=== PATIENT | male | born 1955 | race Caucasian/White ===

== ENCOUNTER → 2023-05-05 13:56 | Outpatient (CLI) | payer MEDICARE, OTHER, SELFPAY ==
--- NOTE | 2023-05-05 14:03 | DI.RAD.S_ITS ---
PROCEDURE: XR KNEE RT 3V INDICATIONS: RIGHT KNEE PAIN TECHNIQUE: Three views of the knee were acquired. COMPARISON: None. FINDINGS: Bones: Normal mineralization. No fractures. Moderate medial compartment joint space loss and marginal spur formation. Soft tissues: No joint effusion. No suspicious soft tissue calcifications. IMPRESSION: 1. No visible fractures. If there is continued concern for occult fracture, immobilization and reimaging in 7-10 days is recommended. 2. No joint effusion to indicate internal derangement. 3. Moderate medial compartment osteoarthritic changes. Dictated by: Carola Herring M.D. on 05/05/2023 at 17:56 Approved by: Carola Herring M.D. on 05/05/2023 at 17:59
--- NOTE | 2023-05-05 14:03 | DI.RAD.S_ITS ---
PROCEDURE: XR KNEE LT 3V INDICATIONS: LEFT KNEE PAIN TECHNIQUE: 3 views of the knee were acquired. COMPARISON: None. FINDINGS: Bones: No fractures or dislocations. No suspicious bony lesions. Tricompartmental joint space narrowing with associated osteophytosis. Subchondral sclerosis of the medial tibiofemoral compartment. Soft tissues: No joint effusion. No suspicious soft tissue calcifications. IMPRESSION: Moderate tricompartmental osteoarthritis. Kellgren-Freddy Grade 2-3. Dictated by: Rancho Jose M.D. on 05/05/2023 at 14:49 Approved by: Rancho Jose M.D. on 05/05/2023 at 14:54
== END ==
PROVIDERS: PCP Family Medicine; Referring Provider Physical Medicine & Rehabilitation; Visit Provider Physical Medicine & Rehabilitation
DX: M25.562 Pain in left knee (principal); M25.561 Pain in right knee; M17.0 Bilateral primary osteoarthritis of knee
CPT/HCPCS: 20611; 73562; 99214; J7318

== ENCOUNTER → 2023-09-09 15:14 | Outpatient (CLI) | payer MEDICARE, OTHER, SELFPAY ==
--- NOTE | 2023-09-09 15:15 | DI.RAD.S_ITS ---
PROCEDURE: XR HIP W PEL IF DONE RT 2V INDICATIONS: RIGHT HIP PAIN TECHNIQUE: AP pelvis with lateral view(s) of the right hip(s). COMPARISON: None. FINDINGS: Bones: No fractures or dislocations. Pelvic ring appears intact. No suspicious bony lesions. Soft tissues: The visualized bowel gas pattern is normal. No suspicious soft tissue calcifications. IMPRESSION: No acute radiographic findings. If pain persists, followup imaging in 5-7 days is recommended to exclude occult fracture. Dictated by: Monika Rivera M.D. on 09/09/2023 at 16:31 Approved by: Monika Rivera M.D. on 09/09/2023 at 16:31
--- NOTE | 2023-09-09 15:15 | DI.RAD.S_ITS ---
PROCEDURE: XR LUMBAR SPINE MIN 4V INDICATIONS: BACK PAIN TECHNIQUE: 5 views of the lumbar spine were acquired, including bilateral oblique views. COMPARISON: None. FINDINGS: Bones: There are 5 [id number] lumbar vertebral bodies. S shaped scoliosis is present within the visualized portions of the thoracolumbar spine. The entire extent of the scoliotic deformity is incompletely characterized without the use of the thoracic spine. No compression deformities. Mild degenerative changes are present including endplate sclerosis and facet sclerosis. Soft tissues: Overlying bowel gas pattern is normal. No suspicious soft tissue calcifications. Oblique images: No pars defects. IMPRESSION: 1. Thoracolumbar scoliosis. 2. No spondylolysis or spondylolisthesis. 3. Mild degenerative change. Dictated by: Monika Rivera M.D. on 09/09/2023 at 16:30 Approved by: Monika Rivera M.D. on 09/09/2023 at 16:31
== END ==
PROVIDERS: PCP Family Medicine; Referring Provider Physical Medicine & Rehabilitation; Visit Provider Physical Medicine & Rehabilitation
DX: M47.814 Spondylosis without myelopathy or radiculopathy, thoracic region (principal); M41.9 Scoliosis, unspecified; M25.551 Pain in right hip; M54.9 Dorsalgia, unspecified; M17.0 Bilateral primary osteoarthritis of knee; C61 Malignant neoplasm of prostate; M70.61 Trochanteric bursitis, right hip; M41.20 Other idiopathic scoliosis, site unspecified
CPT/HCPCS: 72110; 73502; 99214

== ENCOUNTER → 2024-10-11 13:43 | Outpatient (CLI) | payer MEDICARE, OTHER, SELFPAY ==
--- NOTE | 2024-10-11 14:00 | EKG_ITS ---
[id number] [place] [address] Test Date: 2024-10-11 Pat Name: Khris Mitchell Department: [facility] Room: Gender: Male Rn Pediatric: SAVANNAH : 1955 Requested By: Order Number: [id number] Reading MD: Kael Montgomery Measurements Intervals [place] Rate: 65 P: 34 [place]: 192 QRS: -15 QRSD: 104 T: 10 QT: 422 QTc: 438 Interpretive Statements Normal sinus rhythm Incomplete right bundle branch block Electronically Signed On 10-11-2024 14:51:11 PST by Kael Montgomery
[2024-10-11 14:13] LABS: Add Manual Diff / Slide Review NO; Basophils Absolute Auto 0 /uL (0-100); Eosinophils Absolute Auto 100 /uL (0-450); Eosinophils Percent Auto 2.4 % (2-4); Hemoglobin 13.2 g/dL (13.5-17.5); Lymphocytes Absolute Auto 1100 /uL (1100-4500); Lymphocytes Percent Auto 21.9 % (25-40); Mean Corpuscular Hemoglobin 31.2 PG (26-34); Mean Corpuscular Volume 91.7 fL (80-100); Monocytes Absolute Auto 600 /uL (0-900); Monocytes Percent Auto 11.7 % (3-14); Neutrophils Absolute Auto 3100 /uL (1500-7000); Platelet Count 254 X10^3/uL (150-400); Red Blood Cell Count 4.25 X10^6/uL (4.5-5.9); White Blood Cell Count 4.8 X10^3/uL (4.5-11.0)
[2024-10-11 14:28] LABS: Hemoglobin A1C% w Est Avg Glu 5.4 % (4.0-6.0)
[2024-10-11 14:33] LABS: Alanine Aminotransferase 34 IU/L (<50); Albumin 4.3 g/dL (3.5-5.0); Albumin Globulin Ratio 1.6 (1.0-2.8); Alkaline Phosphatase 83 U/L (38-126); Aspartate Aminotransferase 42 IU/L (17-59); BUN Creatinine Ratio 35.7 (6-22); Bilirubin Total 0.8 mg/dL (0.2-1.3); Blood Urea Nitrogen 30 mg/dL (9-20); Calcium 9.6 mg/dL (8.4-10.2); Carbon Dioxide 25 mmol/L (22-32); Chloride 103 mmol/L (98-107); Estimated Glomerular Filt Rate > 60 mL/min (>60); Globulin 2.7 g/dL (1.7-4.1); Glucose 97 mg/dL (80-110); HEMOLYSIS < 15 (0-50); Potassium 4.4 mmol/L (3.4-5.1); Sodium 135 mmol/L (137-145)
[2024-10-11 14:52] LABS: Appearance Urine UA CLEAR; Bilirubin Urine UA 1+ (NEGATIVE); Color Urine UA YELLOW; Glucose Urine UA NEGATIVE (Negative); Ketones Urine UA 1+ (NEGATIVE); Leukocyte Esterase Urine UA NEGATIVE (NEGATIVE); Nitrite Urine UA NEGATIVE (Negative); Occult Blood Urine UA NEGATIVE (Negative); Protein Urine UA TRACE (Negative); Specific Gravity Urine UA 1.025 (1.000-1.035)
[2024-10-11 14:57] LABS: Ictotest Urine Negative (Negative)
[2024-10-11 15:08] LABS: Bacteria Urine None Seen; RBC Urine None Seen (0-5/HPF); Squamous Epithelial Cell Urine 0-1 /HPF (0-5/HPF); Urine Volume 10mL (spun); WBC Urine 0-1/HPF (0-5/HPF)
[2024-10-11 15:09] LABS: Hyaline Casts Urine 1-5/LPF; Mucus Urine 2+ (Negative)
[2024-10-11 15:10] LABS: Culture Indicated Urine Cult Not Indicated
== END ==
LOC: LAB 13:44
PROVIDERS: PCP Family Medicine; Referring Provider Orthopaedic Surgery; Visit Provider Orthopaedic Surgery
DX: Z01.818 Encounter for other preprocedural examination (principal); R73.9 Hyperglycemia, unspecified; Z01.812 Encounter for preprocedural laboratory examination; N39.0 Urinary tract infection, site not specified
CPT/HCPCS: 36415; 80053; 81001; 83036; 85025; 93005

== ENCOUNTER → 2024-10-15 09:49 | Outpatient (CLI) | payer MEDICARE, OTHER, SELFPAY ==
--- NOTE | 2024-10-15 09:50 | DI.NM.S_ITS ---
PROCEDURE: NM BONE SCAN WHOLE BODY RADIOPHARMACEUTICAL: 22 mCi Tc-99m MDP IV. INDICATIONS: primary osteoarthritis of left knee TECHNIQUE: Delayed whole-body scintigrams were obtained approximately 3-4 hours after intravenous injection of radiotracer. Anterior and posterior views were acquired from vertex to feet. Additional left and right oblique views of the knees were obtained. COMPARISON: None. FINDINGS: Increased uptake within the left greater than right knees, most pronounced within the medial compartments. Additional areas of degenerative uptake including the shoulders, spine and feet. Scoliotic curvature of the thoracic spine. Prominent uptake within the right mid cervical spine, likely representing facet arthropathy or hypertrophy. IMPRESSION: Increased uptake within left greater than right knees, most pronounced within the medial compartment. Dictated by: Wei Deng M.D. on 10/15/2024 at 15:51 Approved by: Wei Deng M.D. on 10/15/2024 at 15:53
== END ==
PROVIDERS: PCP Family Medicine; Referring Provider Orthopaedic Surgery; Visit Provider Orthopaedic Surgery
DX: M17.12 Unilateral primary osteoarthritis, left knee (principal); Z85.46 Personal history of malignant neoplasm of prostate
CPT/HCPCS: 78306; A9503

== ENCOUNTER 2024-11-13 11:28 | Day surgery (SDC) | payer MEDICARE, OTHER, SELFPAY ==
[2024-11-07 09:38] VITALS: BMI 28.2
[2024-11-13] VITALS (10 sets, daily range): BP systolic 134–164; BP diastolic 76–98; PULSE 51–71; RESP 15–20; TEMP 35.8–37.1; O2SAT 94–100; BMI 29.2
--- NOTE | 2024-11-13 | PATH_ITS ---
[facility] Accession Number: [id number] No. of containers..01 Tissue . 01 Material submitted: . tibia - TIBIA (LEFT) PERMANENT L KNEE . 01 Diagnosis: TIBIA (LEFT) PERMANENT L KNEE, BIOPSY: Trabecular bone with evidence of remodeling, osteonecrosis, and interspersed marrow fibrosis, changes consistent with degeneration. Negative for osteomyelitis or malignancy. MRV 11/15/2024 1602 Local . 01 Comment: As part of ongoing billing and quality technician, this case is also reviewed by Dr. Natalie Duran, who agrees with the interpretation. . 01 Electronically signed: . Ildefonso Jeronimo MD, Pathologist NPI- [id number] . 01 Gross description: . Received in formalin with two patient identifiers and tibia left knee, and consists of a 1.1 x 1.0 x 0.7 cm aggregate of medina-brown spongy bone which is entirely submitted in cassette A1 following light decalcification. ([id number]) /MRV 11/14/20241950 Local . 01 Pathologist provided ICD-10: M17.12 . 01 CPT . 122592, [id number] Specimen Comment: A courtesy copy of this report has been sent to [phone] Performed at: [address] [address], [place], [place] [id number] MD Balta Santana MD Phone: [phone]
--- NOTE | 2024-11-13 06:00 | DI.RAD.S_ITS ---
PROCEDURE: XR KNEE LT 1TO2V INDICATIONS: TKA TECHNIQUE: 2 view(s) of the knee acquired. COMPARISON: [facility], CR, XR KNEE RT 3V, 05/05/2023, 14:15. FINDINGS: Bones: Patient is status post knee joint arthroplasty. Hardware components are in expected positions. Visualized bony structures are intact. Soft tissues: Overlying postoperative changes are noted. IMPRESSION: Expected post-operative appearance of a knee arthroplasty. Dictated by: Jessica Matute M.D. on 11/15/2024 at 10:50 Approved by: Jessica Matute M.D. on 11/15/2024 at 10:51
[2024-11-13] MEDS: LACTATED RINGERS 1,000 ML 42 ML IV (12:09)
[2024-11-13] MEDS: ACETAMINOPHEN 325 MG TABLET 975 MG PO (12:11)
[2024-11-13] MEDS: CELECOXIB 200 MG CAPSULE 400 MG PO (12:11)
[2024-11-13] MEDS: VANCOMYCIN 1,000 MG in SODIUM CHLORIDE 0.9% 250 ML 250 MG IV (12:35)
--- NOTE | 2024-11-13 14:42 | P.OP_ITS ---
Operative Date/Time/Diagnoses Date of procedure: 11/13/24 Time of procedure: 15:00 Pre-op diagnosis: left knee OA Post-op diagnosis: same Procedure & Clinicians Procedure: 1. Left total knee arthroplasty 2. Proximal medial tibia bone biopsy intramedullary Same procedure as scheduled: Yes Indications: The patient has had progressively worsening left knee pain with radiographic changes consistent with arthritis. Non-operative management has failed and the patient has requested total knee replacement. The risks, benefits and alternatives to surgery were discussed with the patient prior to proceeding. Risks discussed included, but were not limited to, failure to relieve pain, stiffness, infection, nerve damage, deep venous thrombosis, pulmonary embolism, stroke, coma, heart attack, permanent paralysis and , as well as the potential need for eventual revision of the prosthetic. He has a history of metastatic prostate cancer and did require additional workup preoperatively because of an atypical signal in his proximal medial tibia. The plan was for potential biopsy of his proximal medial tibia. Surgeon: Pati Conley Laborer Wrecking And Salvaging: Es Merino Anesthesia Type: General and Spinal Operative Notes Findings: Severe left knee OA, adequate stability Closure Type: primary Specimen(s): none sent Prosthetic devices, grafts, tissues, transplants, or devices: Conley and nephew ori BCS2 SIZE 7 FEMUR, SIZE 6TIBIA, +9 poly, 38 mm patella Estimated Blood Loss (mL): 250 Blood products transfused: none Tourniquet time (min): 90 Procedure in detail: The patient was seen in the pre-operative area, where the patient identified the left knee as the operative site and this was marked with my initials. The patient received pre-operative antibiotics, and was taken to the operating room and placed on the operative table in the supine position. After satisfactory anesthesia, a annealing furnace operator out was performed. The left leg was encircled with a tourniquet about the proximal thigh, and the leg was prepared from the toes to the tourniquet with ChloroPrep in the usual fashion and draped through sterile drapes. The leg was elevated and exsanguinated with Eschmark bandage and the tourniquet inflated to [250] mmHg pressure. A PA was used during the procedure and was essential for intraoperative retraction and safe implantation of the components. The knee was approached through an approximately 18 cm incision centered over the patella and carried into the knee through a medial parapatellar arthrotomy. Portion of the medial and lateral meniscus was resected. Soft tissue was carefully mobilized around the patella the patella was measured with a caliper. Bone was resected from the patella and the patellar height was reconstituted with up an appropriate sized patellar component. A cover was then placed on the patella. A small amount of additional medial and lateral meniscus was resected. Cristhian pins were placed in the femur for robotic assisted navigation, and the adjustable tibial navigated guide was placed. A plan was taken and developed optimize range of motion and stability. It looked like an appropriate distal femoral cut and the cut was made without difficulty. The rotation was assessed and the appropriate size femoral guide was placed on the distal femur and finishing cuts were made. There was no evidence of notching. The anterior, posterior and chamfer cuts were then made. The posterior osteophytes and soft tissues were then removed. The posterior capsule was injected with part of a mixture of 60 ml 0.25% Marcaine mixed with 266 mg Exparel for post operative pain control. The remainder of this mixture was injected into the capsule and subcutaneous tissues during cement curing. The tibial guide was meticulously navigated for a proximal tibial cut. The cut was made without difficulty. The rotation was assessed. The patient was placed in extension residual medial and lateral meniscus as well as any residual bone was carefully resected. [No] additional tibia was resected. Hemostasis was achieved especially posteriorly. Additional local was injected into the posterior capsule. The extension gap was assessed. The femoral component trial was placed and the notch was finished. Trial tibial and femoral components were then placed and the knee placed through a range of motion. Range of motion was [0-130], with good stability throughout the range. The trials were then removed, and the tibia was finished. There was good bone in the proximal tibial plateau and it did not look like I needed to augment with the stem. Patient did have evidence of bony changes in the proximal medial tibia which was noted preoperatively requiring additional workup as he has a known history of prostate cancer. It was felt that a biopsy was indicated and a intramedullary deep tibial biopsy was obtained by reaching down into the proximal medial tibia beyond the tip of the distal stem and into the proximal medial tibia and removing bone to send for pathology. The bone that was obtained did not appear atypical. The bone was prepared with pulsatile lavage, and dried with a sponge. Cement was applied and the final prosthetics placed. Excess cement was removed during and after cement curing. A brief Betadine soak was performed. After confirming there was no extruded cement posteriorly, the final tibial insert was placed. The knee was copiously irrigated and the tourniquet deflated. Hemostasis was obtained with the Bovie cautery. The capsule was closed with interrupted # 1 Vicryl suture. The subcutaneous layer was closed with barbed sutures, and the skin with a running 3-0 V-Lock suture and Surgical glue. An Aquacel Ag dressing was applied and the patient was taken to recovery having tolerated the procedure well. Complications: none Post-operative Disposition: Acute Care Plan for aftercare: The patient will be maintained on a standard total knee replacement protocol with weight bearing as tolerated. The patient will receive aspirin and sequential compression devices for DVT prophylaxis. The patient will be discharged home when safe for the home environment.
--- NOTE | 2024-11-13 14:42 | PM.PREOP ---
Pre-operative Note Interval Note History & Physical reviewed/Exam performed by Physician: Yes Changes to H&P: No
[2024-11-13] MEDS: BUPIVACAINE LIPOSOME 266 MG/20 ML VIAL INJ (15:45)
[2024-11-13] MEDS: BUPIVACAINE 0.25% W/ EPI 30 ML VIAL INJ ×2 (15:46→15:47)
[2024-11-13] MEDS: CEFAZOLIN 2 GM/100 ML PREMIX 100 ML IV (15:47)
[2024-11-13] MEDS: KETOROLAC 30 MG/ML VIAL 15 MG IV (17:48)
[2024-11-13] MEDS: hydrOXYzine 50 MG/ML INJ 25 MG IM (17:48)
--- NOTE | 2024-11-13 18:06 | PC.NURSE ---
Patient is A&OX4, VSS, afebrile. SBP slightly elevated. Patient states he has not taken his home BP meds for a couple of days. He reports pain 8/10 to L knee, but hesitating to take po narcotics. He was given toradol and hydroxyzine in PACU prior to arrival. He tolerates dinner well and denies n/v. +CMS to BLE's. Ziggy wrap to L knee c/d/i/. He states last void was at approximately noon today. Due to void at 1999. IVF LR at 100 ml/hr, SCD's on, admission assessment completed, along with med rec, continuous pulse ox monitoring, bed alarm on, call light and urinal in reach, frequent rounding.
--- NOTE | 2024-11-13 18:18 | SUR.PHASEI ---
Verified verbal orders placed by Rayshawn Garcia RN from Dr Conley.
[2024-11-13] MEDS: LACTATED RINGERS 1,000 ML 100 ML IV (18:31)
[2024-11-13] MEDS: ACETAMINOPHEN 325 MG TABLET 650 MG PO (18:37)
[2024-11-13] MEDS: ASPIRIN EC 81 MG TABLET PO (21:17)
[2024-11-13] MEDS: DOCUSATE 100 MG CAPSULE PO (21:17)
[2024-11-14] MEDS: CEFAZOLIN 2 GM/100 ML PREMIX 100 ML IV ×2 (01:00→07:38)
[2024-11-14] MEDS: LACTATED RINGERS 1,000 ML 100 ML IV (01:58)
[2024-11-14] MEDS: ACETAMINOPHEN 325 MG TABLET 650 MG PO ×2 (03:43→09:58)
[2024-11-14 06:33] LABS: Hematocrit 35.3 % (41-53)
[2024-11-14] MEDS: PANTOPRAZOLE DR 20 MG TABLET PO (06:48)
--- NOTE | 2024-11-14 07:28 | PM.DS.1 ---
History of Present Illness History of Present Illness Date Patient Seen: 11/14/24 Time Patient Seen: 07:15 Chief complaint: Left TKA- Robot *OPB* Narrative: The patient has had progressively worsening left knee pain with radiographic changes consistent with arthritis. Non-operative management has failed and the patient has requested total knee replacement. The risks, benefits and alternatives to surgery were discussed with the patient prior to proceeding. Risks discussed included, but were not limited to, failure to relieve pain, stiffness, infection, nerve damage, deep venous thrombosis, pulmonary embolism, stroke, coma, heart attack, permanent paralysis and , as well as the potential need for eventual revision of the prosthetic. He has a history of metastatic prostate cancer and did require additional workup preoperatively because of an atypical signal in his proximal medial tibia. The plan was for potential biopsy of his proximal medial tibia. Discharge Providers Provider Discharge Date: 11/14/24 Primary care physician: Cortes Diez MD Consults: 11/13/24 06:00 Consult to Anesthesiology Routine Comment: Consulting Provider: Anesthesiologist Reason for consultation: Regional block for post operative pain control 11/13/24 17:47 Consult to Discharge Planning Routine Comment: Consult to Occupational Therapy Evaluate & Treat Comment: Physician Instructions: Evaluate and treat Consult to Physical Therapy Evaluate & Treat Comment: Physician Instructions: postop TKA protocol Discharge provider: Derw Bolden PA-C Summary Hospital Course Discharge Diagnosis: left knee OA Hospital Course: Procedure: 1. Left total knee arthroplasty 2. Proximal medial tibia bone biopsy intramedullary Same procedure as scheduled: Yes Surgeon: Pati Conley Glass Blowing Instructor: Es Merino Anesthesia Type: General and Spinal Operative Notes Findings: Severe left knee OA, adequate stability Closure Type: primary Specimen(s): none sent Prosthetic devices, grafts, tissues, transplants, or devices: Conley and nephew journey BCS2 SIZE 7 FEMUR, SIZE 6TIBIA, +9 poly, 38 mm patella Estimated Blood Loss (mL): 250 Blood products transfused: none Tourniquet time (min): 90 Status at Discharge Cognitive/behavioral status at discharge: oriented Functional status at discharge: uses cane/walker Overall status at discharge: patient is back to baseline Time Spent with Patient Time spent: Less than 30 minutes Exam Vital Signs (past 8 hours): Oxygen Delivery Method Room Air Oxygen Flow Rate 0 Narrative Exam Narrative: Had complaints of decreased sensation along the pelvic region and urinated on himself. Condom catheter was applied. States that sensation has returned and is able to retained urine appropriately. Patient's pain is controlled with oral medication. ?Pain is localized to surgical site. ?Patient declines any new numbness or tingling at the surgical extremity. ?Patient denies any shortness of breath, dizziness, light-headedness, nausea, vomiting, fever or chills. 5/5 strength in hip flexors, quadriceps, hamstrings, DF, PF, EHL bilaterally. Sensation to light touch intact throughout BLE. Calves soft, compressible, nontender. Dressing placed intraoperatively CDI. Objective Labs 11/14/24 05:00 Labs: Laboratory Results - last 24 hr 11/14/24 05:00 Hgb 12.0 L Hct 35.3 L PFSH Medical History Depression GERD (gastroesophageal reflux disease) HTN (hypertension) Hx of agent Dooly exposure Scoliosis Greater trochanteric bursitis of right hip Prostate CA Degenerative joint disease of knee Surgical History H/O left knee surgery Status post Mohs surgery History of ear surgery H/O prostatectomy Family History Father Emphysema of lung Mother Age factor Social History household members: spouse Smoking Status: Never smoker alcohol intake: current Discharge Assessment & Plan Assessment and Plan Assessment: Status post left total knee arthroplasty and proximal medial tibial bone biopsy. Plan of Treatment: Discharge to home. ? Ambulate and weight bear as tolerated with assistive devices. ? Aspirin 81 mg twice a day for 6 weeks for DVT prevention. ? Baseline pain relief with acetaminophen 500mg every 4 hours as needed and ibuprofen 400 mg every 4 hours as needed. ?Patient has been prescribed oxycodone 5 mg every 4 ?hours as needed for breakthrough pain. ? Initiate physical therapy in the next 5-10 days. ? Keep dressing clean and dry. Keep dressing on until first office visit. If dressing becomes dirty or disrupted, replace with appropriate sized dressing. Follow up in clinic in 2 weeks for wound check. Contact clinic if there are any questions or concerns. Discharge Plan Discharge Plan Patient Disposition: Home Discharge orders & Medications Discharge Orders: Discharge (Order); Ordered 11/14/24 Ordered By: Drew B Yuan Prescriptions: New aspirin 81 mg Tablet,Delayed Release (Dr/Ec) 81 mg PO BID Qty: 90 0RF Continued celecoxib [Celebrex] 200 mg capsule 200 mg PO DAILY Qty: 90 2RF Rx Instructions: DON'T TAKE ANY OTHER NSAIDS WITH THIS MEDICATION diclofenac sodium 1 % Gel 4 g TOPICAL QID Rx Instructions: apply to single knee, ankle, foot; for foot includes sole/toes/top of foot magnesium 250 mg Tablet 250 mg PO DAILY escitalopram oxalate 20 mg tablet 20 mg PO DAILY Patient Comments: TAKE 1 TABLET BY MOUTH DAILY Xtandi 80 mg tablet 160 mg PO DAILY omeprazole 20 mg capsule,delayed release(DR/EC) 20 mg PO DAILY losartan 50 mg tablet 50 mg PO DAILY multivitamin Tablet 1 tab PO DAILY leuprolide acetate (6 month) 45 mg syringe kit 45 mg IM [id number] Follow up/Referrals: Es Merino PA-C [Advanced Proof Press Operator] - 11/27/24 11:00 am (Appt:11/27 @ 11:00 with Blanco PAC @ [facility] ) Cortes Diez MD [Primary Care Provider] - Diet/Activity/Treatments Diet: Diet as Tolerated Activity: Ambulate multiple times a day. Use a cane or walker as needed. Full weight on leg. Skin/Wound/Dressing Care Skin care: Leave dressing on. Okay to shower Report to your healthcare provider any signs of infection, such as:: chills, fever, night sweats, unusual drainage and unusual redness Dressing: May shower. Leave dressing in place until follow up in office. No bathing or otherwise soaking incision. Call the office if the dressing becomes saturated inside. Visit Report/Discharge Packet Instructions: DI for Knee Replacement Stand Alone Forms: Patient Portal/API, Surgery Discharge Discharge Data Primary Care Provider: Cortes Diez Attending Provider: Pati Conley VTE Deep Vein Thrombosis/Pulmonary Embolism Present on Admission: No
[2024-11-14 08:05] VITALS: BP 158/65
[2024-11-14] MEDS: DOCUSATE 100 MG CAPSULE PO (08:05)
[2024-11-14] MEDS: MAGNESIUM OXIDE 400 MG TABLET 200 MG PO (08:05)
[2024-11-14] MEDS: ASPIRIN EC 81 MG TABLET PO (08:05)
[2024-11-14] MEDS: LOSARTAN 50 MG TABLET PO (08:05)
[2024-11-14] MEDS: MULTIVITAMIN 1 TABLET 1 TAB PO (08:06)
[2024-11-14] MEDS: ESCITALOPRAM 10 MG TABLET 20 MG PO (08:06)
[2024-11-14] MEDS: IBUPROFEN 400 MG TABLET PO (08:08)
--- NOTE | 2024-11-14 09:30 | OT.IP.EVAL ---
Current Diagnoses Unilateral primary osteoarthritis, left knee (11/13/24) Surgery Performed Operation Date: 11/13/24 13:45 Actual Procedures p Total Knee Arthroplasty - Robot(Left) - Pati Conley MD Past Medical History (Last Reviewed 11/13/24 @ 12:02 by Christine Angulo, RN) Degenerative joint disease of knee Depression GERD (gastroesophageal reflux disease) Greater trochanteric bursitis of right hip HTN (hypertension) Hx of agent [place] exposure Prostate CA Scoliosis Surgical History (Last Reviewed 11/13/24 @ 12:02 by Christine Angulo, RN) H/O left knee surgery H/O prostatectomy History of ear surgery Status post Mohs surgery Occupational Therapy Inpatient Evaluation/Re-Eval M1 PT/OT-IP Prior Functional Status Start: 11/14/24 09:32 Freq: NEEDED Status: Active Protocol: Document 11/14/24 09:34 [facility] (Rec: 11/14/24 09:47 [facility] [id number]) Medical Review Prior Functional Status Medical History Reviewed Yes Communication I Mobility and Gait I without a device but had newberry and able to walk 1/2 mile to 3 miles. Activities of Daily Living and IADL's Pt had pain with ADL and IADL needs. Prior Functional Level (Other details) Pt to be able to assist him. Social History Household Members spouse Living Arrangements House Number of Floors (Floors) One Floor Number of Stairs To Enter/Railing? 6 steps with left rail ascending from the back to get in. Home Environment Standard Height Toilet,Walk in Shower,Tub/Shower,Built-In Shower Seat Home Equipment Front Wheel Walker,Hand Held Shower,Grab Bars In Shower Additional Social History Comment Pt has hiking sticks. M2 OT-IP Current Condition Start: 11/14/24 09:32 Freq: Status: Active Protocol: Document 11/14/24 09:34 [facility] (Rec: 11/14/24 09:47 [facility] [id number]) Occupational Therapy Current Condition Current Condition Evaluation Date 11/14/24 Treatment Diagnosis S/P L TKA Diagnosis Onset Date 11/13/24 Weight Bearing Status Weight Bearing Status Weight Bear as Tolerated M3 OT- IP Subjective and Pain Start: 11/14/24 09:32 Freq: Status: Active Protocol: Document 11/14/24 09:34 [facility] (Rec: 11/14/24 09:47 [facility] [id number]) OT- Subjective Occupational Therapy Visit Type Type Initial Evaluation Visit Start Time 08:50 Visit Stop Time 09:30 Occupational Therapy Visit Comments Patient Comments Pt agreed to get up. Patient/Caregiver Goals TO go home. OT Pain Assessment Pain When Pain Assessed At Rest Pain Present Pain Present Pain Reported Location Left knee Intensity 3 Scale Used Numeric (0 - 10) M4 OT- IP ADL's Start: 11/14/24 09:32 Freq: Status: Active Protocol: Document 11/14/24 09:34 [facility] (Rec: 11/14/24 09:47 [facility] [id number]) OT CWL-Oxcw-Idjkvxy General Evaluation Self-Feeding Ability Independent OT ADL-Grooming Comments OT Grooming Comments Pt states to do at home. OT ADL-Oral Care Comments Oral Care Comments Pt refused. OT ADL-Dressing General Eval Lower Body Dressing Ability Maximum Assistance Areas Needing Assistance Socks Comments OT Dressing Comments Educated best to garima the LLE first and take out last. Use of LB dressing equipment will be helpful. OT ADL-Toileting General Evaluation Toileting Ability Standby Assistance Comments OT Toileting Comments Educated pt to be mindful of his left knee while wiping and use of wet ones and urinal at night or to have his be there initially. OT ADL-Bathing Comments OT Bathing Comments Pt may benefit from a shower chair. Educated of dressing needs while showering. M5 OT- IP IADL's Start: 11/14/24 09:32 Freq: Status: Active Protocol: Document 11/14/24 09:34 [facility] (Rec: 11/14/24 09:47 [facility] [id number]) OT-Instrumental Activities of Daily Living Deficits IADL Deficits Identified Deficits Home Safety Awareness Awareness of Need for Assistance at Home Good Awareness Ability to Problem Solve Emergency Able to Problem Solve Situations Meal Preparation Meal Preparation Caregiver Provides Assist Massage Therapy Instructor Massage Therapy Instructor Caregiver Provides Assist M6 OT- IP Functional Cognition Start: 11/14/24 09:32 Freq: Status: Active Protocol: Document 11/14/24 09:34 [facility] (Rec: 11/14/24 09:47 [facility] [id number]) Cognitive Factors Limiting Selfcare Function Cognitive Ability Level of Alertness Alert Patient Orientation Name,Age,Birthday,Month,Date, Year,Day of Week,Place, Situation Attention Span Ability Capable of Focused Attention, Capable of Sustained Attention Ability to Follow Commands Able to Follow One Step Commands Cognitive Comments Cognitive Assessment Comments Pt needing safety reminders to back up all the way before sitting down. Push on surfaces to stand versus use of the FWW. OT- Vision and Hearing OT- Hearing Assessment OT- Hearing Assessment Hearing Impaired,Use of Hearing Aids OT- Vision Assessment Visual Acuity Glasses All The Time Visual Attentiveness WFL Occular Pursuits WFL M7 OT- IP Mobility and Balance Start: 11/14/24 09:32 Freq: Status: Active Protocol: Document 11/14/24 09:34 [facility] (Rec: 11/14/24 09:47 [facility] [id number]) OT- Bed Mobility Assessment Sit to Supine Sit to Supine Assist Standby Assistance OT-Transfer Assessment Sit to and From Stand Sit to and from Stand Contact Guard Assistance Transfers Transfer Ability Standby Assistance,Contact Guard Assistance Technique Transfer Destination Bed,Toilet Transfer Technique Stand Step Pivot Devices Transfer Assistive Devices Gait Belt,Front Wheeled Walker Comments Mobility Comments Pt having to use his hands to assist to get his LLE into the bed. CGA to stand and close SBA to CGA from transfers with the FWW. CGA while standing and sitting down and reminders to slide his LLE out prior. BP sitting up in reclienr 140/ 87, standing 116/71,116/72 and after use of toilet 107/66 and feeling woozy and in supine 156/86. NUrsing aid notified. OT- Balance Assessment Sitting Balance and Reactions Static Sitting Balance Ability Normal Dynamic Sitting Balance Ability Good Standing Balance and Reactions Static Standing Balance Ability Good Dynamic Standing Balance Ability Fair M8 OT- IP Objective Assessments Start: 11/14/24 09:32 Freq: Status: Active Protocol: Document 11/14/24 09:34 [facility] (Rec: 11/14/24 09:47 [facility] [id number]) OT Gross Range of Motion Upper Extremity Range of Motion Assessment Within Functional Limits OT Strength Upper Extremity Strength Assessment Within Functional Limits M9 OT- IP Assessment and Plan Start: 11/14/24 09:32 Freq: Status: Active Protocol: Document 11/14/24 09:34 [facility] (Rec: 11/14/24 09:47 [facility] [id number]) OT Summary Assessment and Plan Potential Rehabilitation Potential Excellent Analytic Complexity at Evaluation Low Summary OT Impairments Pain,Balance,Functional Mobility,Dressing,Toileting, Bathing,Toilet Transfers, Shower Transfers Progress Towards Goals Progressing Toward Goals Assessment Summary Pt low complexity and main barriers, are steps, orthostatic while standing and walking with the FWW, and will need assist for dressing and showering needs. Pt to go home with his when medically stable. Pt states PA looking to set up outpt PT appointment as [place] [place] not able to get him in until the end of the month. Goals Dressing Goal Independent Toileting Goal Independent Bathing Goal Standby Assistance Toilet Transfer Goal Independent Shower Transfer Goal Independent Days to Meet Goals 5 Frequency of Treatment Other frequency 5x/week Treatment Plan OT Treatment Plan ADL Training,Functional Mobility,Patient/Family Education,Discharge Planning Discharge Recommendations OT Discharge Recommendations Home with Assistance, Outpatient PT Home Equipment Needs shower chair Transportation Needs at Discharge Private Vehicle
--- NOTE | 2024-11-14 10:30 | PT.IIE ---
Current Diagnoses Unilateral primary osteoarthritis, left knee (11/13/24) Surgery Performed Operation Date: 11/13/24 13:45 Actual Procedures p Total Knee Arthroplasty - Robot(Left) - Pati Conley MD Surgical History (Last Reviewed 11/13/24 @ 12:02 by Christine Angulo, RN) H/O left knee surgery H/O prostatectomy History of ear surgery Status post Mohs surgery Medical History (Last Reviewed 11/13/24 @ 12:02 by Christine Angulo RN) Degenerative joint disease of knee Depression GERD (gastroesophageal reflux disease) Greater trochanteric bursitis of right hip HTN (hypertension) Hx of agent [place] exposure Prostate CA Scoliosis Physical Therapy Inpatient Evaluation/Re-Eval M1 PT/OT-IP Prior Functional Status Start: 11/14/24 09:32 Freq: NEEDED Status: Discharge Protocol: Document 11/14/24 09:34 [facility] (Rec: 11/14/24 09:47 [facility] [id number]) Medical Review Prior Functional Status Medical History Reviewed Yes Communication I Mobility and Gait I without a device but had newberry and able to walk 1/2 mile to 3 miles. Activities of Daily Living and IADL's Pt had pain with ADL and IADL needs. Prior Functional Level (Other details) Pt to be able to asisst him. Social History Household Members spouse Living Arrangements House Number of Floors (Floors) One Floor Number of Stairs To Enter/Railing? 6 steps with left rail ascending from the back to get in. Home Environment Standard Height Toilet,Walk in Shower,Tub/Shower,Built-In Shower Seat Home Equipment Front Wheel Walker,Hand Held Shower,Grab Bars In Shower Additional Social History Comment Pt has hiking sticks. M1 PT/OT-IP Prior Functional Status Start: 11/14/24 13:58 Freq: NEEDED Status: Active Protocol: Document 11/14/24 10:30 [facility] (Rec: 11/14/24 14:11 [facility] [id number]) Medical Review Prior Functional Status Medical History Reviewed Yes Communication able to make needs known Mobility and Gait pt stated that he was independent with all mobilities and ambulation without AD Activities of Daily Living and IADL's Pt had pain with ADL and IADL needs. Social History Household Members spouse Living Arrangements House Number of Floors (Floors) One Floor Number of Stairs To Enter/Railing? 6 steps L rail ascending to enter thehouse Home Environment Standard Height Toilet,Walk in Shower Home Equipment Front Wheel Walker,Hand Held Shower,Grab Bars Near Toilet, Grab Bars In Shower Additional Social History Comment pt has walking sticks M2 PT-IP Current Condition Start: 11/14/24 13:58 Freq: NEEDED Status: Active Protocol: Document 11/14/24 10:30 [facility] (Rec: 11/14/24 14:11 [id number]) Physical Therapy Current Condition Current Condition Evaluation Date 11/14/24 Treatment Diagnosis s/p L TKA; difficulty in walking Onset Date 11/13/24 M3 PT-IP Subjective Start: 11/14/24 13:58 Freq: NEEDED Status: Active Protocol: Document 11/14/24 10:30 [facility] (Rec: 11/14/24 14:11 [facility] [id number]) Subjective Physical Therapy Visit Type Type Initial Evaluation Visit Start Time 10:30 Visit Stop Time 11:01 Number of FUEL YARD OPERATOR Visits 0 Physical Therapy Visit Comments Patient Comments agreeable to do PT Therapy Pain Assessment Pain When Pain Assessed At Rest Pain Present Pain Present Pain Reported Location Left knee Intensity 5 Scale Used 6/10 with mobility Pain Behaviors Guarding,Holding Area Pain Management Techniques Apply Cold,Distraction, Elevation,Modification of Treatment,Re-positioning, Timing of Activity with Medications M4 PT-IP Mobility and Gait Start: 11/14/24 13:58 Freq: NEEDED Status: Active Protocol: Document 11/14/24 10:30 [facility] (Rec: 11/14/24 14:11 [facility] [id number]) PT-Bed Mobility Assessment Supine to Sit Supine to Sit Standby Assistance Sit to Supine Sit to Supine Standby Assistance PT-Transfer Assessment Sit to and From Stand Sit to and from Stand Standby Assistance,1 Person Assistance,Use of Upper Extremities Equipment Transfer Assistive Device Gait Belt,Front Wheeled Walker Orthotic/Prosthetic Devices or Brace: No Transfers Transfer Destination Toilet Transfer Technique ambulated Transfer Ability Level of Assist Standby Assistance,1 Person Assistance,Use of Upper Extremities Comments Mobility Comments pt was sitting on EOB with nurse. pt. requesting to use the toilet. PT took over pt's care. pt completed sit to stand sBA and ambulated using fWW to the toilet SBA. pt ambulated from the toilet to the chair using FWW. obtained PLOF and home set up. educated on HEP. pt completed sit to stand from the chair SBA and step transfer to EOB SBA. completed bed mobility SBA. pt agreed to do stairs. sit to stand from EOB SBA and ambulated in the hallway using FWW ~ 100 ft SBA. stair climbing training. educated on how to do stairs. pt completed up/down step holding on to L rail with B hands SBA to CGA. assisted pt back to his room. pt ambulated from the w/c to chair using FWW SBA. positioned pt on the chair. call light and table placed within reach. Ice pack positioned on L knee. pt without further concerns. Gait Assessment Gait Gait Assistance Required: Standby Assistance,1 Person Assist Distance (Feet) 100 Able to Maintain Weight Bearing Status Yes During Gait Assistive Devices Assistive Device Gait Belt,Front Wheeled Walker Orthotic/Prosthetic Devices or Brace: No Gait Deviations General Gait Pattern Antalgic,Decreased Stride Length,Decreased Feet Clearance Factors Limiting Gait Function Factors Limiting Gait Function Decreased Activity Tolerance, Decreased Strength,Limited Range of Motion,Pain,Poor Balance,Poor Safety Awareness Stair Climbing Assessment Evaluation Level of Assist On Stairs Standby Assistance,Contact Guard Assistance Devices Stair Climbing Assistive Devices Left Railing Technique/Endurance Stair Climbing Direction Ascend and Descend Stair Climbing Technique Step to Step Number of Steps Climbed 3 Query Text: Stair Climbing Set # Repetitions (reps) 1 PT-Balance Assessment Sitting Balance and Reactions Static Sitting Balance Ability Normal Dynamic Sitting Balance Ability Normal Standing Balance and Reactions Static Standing Balance Ability Good Dynamic Standing Balance Ability Fair Device Used FWW M5 PT-IP Objective Assessments Start: 11/14/24 13:58 Freq: NEEDED Status: Active Protocol: Document 11/14/24 10:30 [facility] (Rec: 11/14/24 14:11 [facility] [id number]) Orientation Orientation/Cognition Level of Alertness Alert Orientation Name,Place,Situation Language Function Ability No Deficits Noted Safety Awareness Understands Safety Issues Memory Description No Deficits Noted Strength Lower Extremity Strength Assessment Left Impaired Hip 4-/5 Knee 3+/5 Coordination Assessment Gross Coordination Gross Coordination WNL Sensation Assessment Sensation Gross Sensation WNL Muscle Tone Muscle Tone WNL Yes M6 PT-IP Treatment Start: 11/14/24 13:58 Freq: NEEDED Status: Active Protocol: Document 11/14/24 10:30 [facility] (Rec: 11/14/24 14:11 [id number]) Physical Therapy Treatment Education Education Provided Precautions,Weight Bearing Status,Post-Op Packet,Safety M7 PT-IP Assessment and Plan Start: 11/14/24 13:58 Freq: NEEDED Status: Active Protocol: Document 11/14/24 10:30 [facility] (Rec: 11/14/24 14:11 [id number]) PT Summary Assessment and Plan Potential Rehabilitation Potential Good Status of Condition at Evaluation Stable Summary Impairments Pain,ROM,Strength,Balance, Coordination,Bed Mobility, Transfers,Gait,Activity Tolerance Assessment Summary pt is a 68 y/o M s/p R TKA POD 1. pt is WBAT on LLE. pt requiring SBA with mobilities and plans to go home with spouse to assist him. pt has outpt PT set up. pt may go home when medically stable. Goals Bed Mobility Goal Independent Transfer Goal Independent,Front Wheeled Walker Gait Goal Independent,Front Wheel Walker Gait Distance 300 Other Goals up/down 6 steps L rail ascending mod I Days to Meet Goals 3 Frequency of Treatment Frequency Of Treatment Twice a Day Treatment Plan Physical Therapy Treatment Plan Bed Mobility Training,Transfer Training,Gait Training, Therapeutic Exercise,Balance Retraining,Post Op Education, Discharge Planning,Hot or Cold Pack,Neuromuscular Re-ed, Coordination Retraining,Manual Therapy Weight Bearing Status Weight Bearing Status Weight Bear as Tolerated Allowed Weight Bearing Amount (enter % LLE WBAT or #) (%) Recommendations To Nursing Amount of Assist Needed 1 Person Assist Discharge Recommendations PT Discharge Recommendations Home with Assistance, Outpatient PT Transportation Needs at Discharge Private Vehicle
[2024-11-14 10:44] VITALS: PULSE 87; RESP 15; TEMP 36.4; O2SAT 96
[2024-11-14] MEDS: OXYCODONE IR 5 MG TABLET PO (10:46)
--- NOTE | 2024-11-14 10:57 | CM.DANOTE ---
Initial DCP Assessment Note Pt is a 68 yo male, resident of [place], now POD#1 from left TKA PCP: Cortes Diez Payer: [facility] Reviewed chart, pt discussed in multidisciplinary rounds this morning. Therapy has cleared pt for return home w/family to assist and pt has planned for home, DC order from Ortho has already been initiated this morning. No barriers identified at this time to patient's safe discharge home w/family to assist; close outpatient f/u recommended. CM team will plan to follow clinical course closely in case any DC needs or concerns arise. PEDRO Sexton Discharge Planning/Care Management CM Discharge Assessment Start: 11/14/24 10:55 Freq: Status: Active Protocol: Document 11/14/24 10:56 [facility] (Rec: 11/14/24 10:57 [facility] [id number]) Discharge Planning Assessment Assigned Accounting Professor PEDRO Vazquez DPOA/Assigned Designee Name Carla Mitchell, spouse Contact Information [phone] Advance Directives? No History Provided By Patient,Medical Record Prior Living Arrangements House Household Members spouse Type of transporation used prior to Drives own vehicle admit Independent with ADL's Yes Is patient alert and oriented? Yes Patient/Family Preference OP OT Therapy Barriers to Discharge No Discharge Plan Home Transportation Arrangement Family Referrals Initiated None needed
== END 2024-11-14 12:07 | disposition home or self-care (01) ==
LOC: OR 11:29 → AC 11:30
PROVIDERS: PCP Family Medicine; Referring Provider Orthopaedic Surgery; Visit Provider Orthopaedic Surgery
PROC: 0SRD0JZ Replacement of Left Knee Joint with Synthetic Substitute, Open Approach (ICD-10-PCS; CPT 27447; principal; 2024-11-13 13:45)
DX: M17.12 Unilateral primary osteoarthritis, left knee (principal); M87.9 Osteonecrosis, unspecified; I10 Essential (primary) hypertension; K21.9 Gastro-esophageal reflux disease without esophagitis; F32.A Depression, unspecified; Z85.46 Personal history of malignant neoplasm of prostate
CPT/HCPCS: 27447; 36415; 73560; 85014; 85018; 97161; 97165; 97530; 97535; C1776; J0666; J0690; J1885; J2250; J2704; J3010; J3410

== ENCOUNTER → 2024-12-28 14:20 | Outpatient (CLI) | payer MEDICARE, OTHER, SELFPAY ==
[2024-11-13 17:59] VITALS: BMI 29.2
--- NOTE | 2024-12-28 14:21 | DI.RAD.S_ITS ---
PROCEDURE: XR KNEE RT 3V INDICATIONS: RIGHT KNEE PAIN TECHNIQUE: 3 views of the knee were acquired. COMPARISON: [facility], [facility], XR KNEE RT 3V, 05/05/2023, 14:15. [facility], [facility], XR KNEE LT 1TO2V, 11/13/2024, 17:07. FINDINGS: Bones: No fractures or dislocations. No suspicious bony lesions. Tricompartmental arthritic change most severe medially. Periarticular osteophytes are present. Minimal subchondral sclerosis. Overall relatively stable compared to prior exam. Soft tissues: Mild joint effusion. No suspicious soft tissue calcifications. IMPRESSION: Tricompartmental arthritic change. Dictated by: Sissy Ramirez M.D. on 12/28/2024 at 16:14 Approved by: Sissy Ramirez M.D. on 12/28/2024 at 16:14
== END ==
PROVIDERS: PCP Family Medicine; Referring Provider Physical Medicine & Rehabilitation; Visit Provider Physical Medicine & Rehabilitation
DX: M25.561 Pain in right knee (principal); M25.461 Effusion, right knee
CPT/HCPCS: 73562

== ENCOUNTER → 2025-04-30 10:48 | Outpatient (CLI) | payer MEDICARE, OTHER, SELFPAY ==
[2025-02-06 13:43] VITALS: BMI 29.2
== END ==
PROVIDERS: PCP Family Medicine; Visit Provider Chiropractor
DX: L08.9 Local infection of the skin and subcutaneous tissue, unspecified (principal)
CPT/HCPCS: 87070; 87205

== ENCOUNTER → 2025-05-09 17:45 | Outpatient (CLI) | payer MEDICARE, OTHER, SELFPAY ==
[2025-02-06 13:43] VITALS: BMI 29.2
== END ==
LOC: LAB 17:46
PROVIDERS: PCP Family Medicine; Referring Provider Family Medicine; Visit Provider Family Medicine
DX: L60.3 Nail dystrophy (principal)
CPT/HCPCS: 87070; 87075; 87102; 87205